=== PATIENT | male | born 1955 | race Two or more races ===

== ENCOUNTER 2017-01-12 10:38 | Day surgery (SDC) | payer BC, OTHER ==
[~2017-01-12] VITALS: Ht 175.3 cm; Wt 73.5 kg
[~2017-01-12 10:38] MED LIST: ALBU8.5H8 INH; CYCL-259 PO; FENTANYL PF 250 MCG/5ML ONE; FLUT1DIS5 IH; HYDR-3245 PO; LOSA50TA6 PO; MIDAZOLAM 1 MG/ML, 2ML ONE; MONT10TA6 PO; PANT40TA5 PO
[2017-01-12] MEDS ORDERED: LACTATED RINGERS 1,000 ML IV SCH (11:06)
[2017-01-12 11:07] VITALS: BP 127/87
[2017-01-12] MEDS ORDERED: LIDOCAINE/PF 1%, 30ML ONE (11:30)
[2017-01-12] MEDS ORDERED: EPINEPHRINE 1 MG/ML, 1ML ONE (11:30)
[2017-01-12] MEDS ORDERED: SCOPOLAMINE 1MG PATCH TD STA (11:36)
[2017-01-12] MEDS ORDERED: SCOPOLAMINE PATCH, 1.5MG PATCH.TD72 TD STA (11:44)
[2017-01-12] MEDS ORDERED: PROPOFOL 10 MG/ML, 20ML ONE (11:56)
[2017-01-12] MEDS ORDERED: LIDOCAINE-MPF 2% ,5ML ONE (11:56)
[2017-01-12] MEDS ORDERED: PHENYLEPHRINE 10 MG/ML ONE (11:56)
[2017-01-12] MEDS ORDERED: ONDANSETRON 2MG/ML, 2ML ONE (11:56)
[2017-01-12] MEDS ORDERED: DEXAMETHASONE 4 MG/ML, 5ML ONE (11:56)
[2017-01-12] MEDS ORDERED: PROPOFOL 10 MG/ML, 50ML ONE (11:56)
[2017-01-12] MEDS ORDERED: CEFAZOLIN 1,000 MG ONE (11:56)
[2017-01-12] MEDS ORDERED: SUCCINYLCHOLINE 20 MG/ML, 10ML ONE (11:56)
[2017-01-12] MEDS ORDERED: ALBUTEROL SULFATE 2.5 MG/3 ML NPPB PRN (12:30)
[2017-01-12] MEDS ORDERED: PROMETHAZINE 25 MG/ML, 1ML IV PRN (12:30)
[2017-01-12] MEDS ORDERED: MIDAZOLAM 1 MG/ML, 2ML IV PRN (12:30)
[2017-01-12] MEDS ORDERED: MEPERIDINE/PF 25MG/0.5ML IVPush PRN (12:30)
[2017-01-12] MEDS ORDERED: LABETALOL 5MG/ML, 20ML IV PRN (12:30)
[2017-01-12] MEDS ORDERED: SCOPOLAMINE 1MG PATCH TD SCH (12:30)
[2017-01-12] MEDS ORDERED: ONDANSETRON 2MG/ML, 2ML IVPush PRN (12:30)
[2017-01-12] MEDS ORDERED: HYDROcodone/APAP 7.5-325MG/15ML UDC PO PRN (12:30)
[2017-01-12] MEDS ORDERED: FENTANYL PF 100 MCG/2ML IV PRN (12:30)
[2017-01-12] MEDS ORDERED: OXYcodone 5 MG/5 ML ORAL.SOL UDC PO PRN (12:30)
[2017-01-12] MEDS ORDERED: hydrALAzine 20 MG/ML, 1ML IV PRN (12:30)
[2017-01-12] MEDS ORDERED: ACETAMINOPHEN 325 MG TABLET PO PRN (12:30)
[2017-01-12] MEDS ORDERED: HYDROmorphone 1 MG/ML, 1ML IV PRN (12:30)
[2017-01-12] MEDS ORDERED: ALBUTEROL/IPRATROPIUM 2.5MG/0.5MG, 3 ML NPPB PRN (12:30)
[2017-01-12] MEDS ORDERED: MUPIROCIN OINT 2%, 22GM ONE (12:55)
[2017-01-12] MEDS ORDERED: COCAINE TOPICAL SOLN 4%, 4ML ONE (12:56)
[2017-01-12] MEDS ORDERED: OXYMETAZOLINE NASAL SPRAY 0.05%, 15ML ONE (13:14)
[2017-01-12] MEDS ORDERED: ACETAMINOPHEN 325 MG TABLET ONE (15:43)
[2017-01-12] MEDS ORDERED: ACETAMINOPHEN 650 MG/20.3 ML UDC ONE (15:43)
[2017-01-12] MEDS ORDERED: OXYcodone 5 MG/5 ML ORAL.SOL UDC ONE (15:44)
== END 2017-01-12 19:15 | disposition home or self-care (01) ==
LOC: OUT 10:38
PROVIDERS: ATTEND Otolaryngology Facial Plastic Surgery
DX: J34.2 Deviated nasal septum (principal); J34.3 Hypertrophy of nasal turbinates; M95.0 Acquired deformity of nose; I10 Essential (primary) hypertension; J45.909 Unspecified asthma, uncomplicated; Z87.39 Personal history of other diseases of the musculoskeletal system and connective tissue; S02.2XXA Fracture of nasal bones, initial encounter for closed fracture; X58.XXXA Exposure to other specified factors, initial encounter; Y93.89 Activity, other specified; Y92.89 Other specified places as the place of occurrence of the external cause; Y99.8 Other external cause status
CPT/HCPCS: 30140; 30465; 30520; J0171; J0330; J0690; J1100; J2250; J2370; J2405; J2704; J3010; J3490; J7120